=== PATIENT | male | born 1950 | race Two or more races ===

== ENCOUNTER 2023-06-24 15:57 | Emergency (ER) | payer OTHER, MEDICAID ==
[~2023-06-24] VITALS: Ht 190.5 cm; Wt 102.3 kg
[2023-06-24 16:57] LABS: Basophils # (auto) 0.1 10 ^3/uL (0-0.2); Basophils % (auto) 0.5 % (0.0-2.0); Eosinophils # (auto) 0 10 ^3/uL (0-0.8); Eosinophils % (auto) 0.2 % (0.0-7.0); Hematocrit 42.6 % (41.0-53.0); Hemoglobin 14.1 g/dL (13.5-17.5); Lymphocytes # (auto) 0.8 10 ^3/uL (0.4-5.4); Lymphocytes % (auto) 5.2 % (10.0-50.0); Mean Corpuscular Hemoglobin 27.5 pg (28.0-32.0); Mean Corpuscular Volume 83.2 fL (80.0-100.0); Monocytes # (auto) 0.7 10 ^3/uL (0-1.3); Monocytes % (auto) 4.5 % (0.0-12.0); Neutrophils # (auto) 13.7 10 ^3/uL (1.6-8.6); Neutrophils % (auto) 89.6 % (37.0-80.0); Red Blood Cells 5.12 10^6/uL (4.5-5.90); Red Cell Distribution Width 14.6 % (11.8-14.3); White Blood Cell 15.3 10^3/uL (4.4-10.8)
[2023-06-24 17:21] LABS: Acetaminophen < 2.0 UG/ML (10.0-20.0); Alanine Aminotransferase 19 U/L (7-40); Albumin 4.4 g/dL (3.2-4.8); Alkaline Phosphatase 46 U/L (46-116); Anion Gap 8 (5-15); Aspartate Aminotransferase 26 U/L (13-40); BUN/Creatinine Ratio 9.9 (10.0-20.0); Blood Urea Nitrogen 10 mg/dL (9-23); Calcium 9.6 mg/dL (8.7-10.4); Carbon Dioxide 23 mmol/L (20-30); Chloride 107 mmol/L (98-107); Glucose 119 mg/dL (74-106); Salicylate < 3.0 mg/dL (2.8-20.0); Sodium 138 mmol/L (136-145)
[2023-06-24 17:22] LABS: Bilirubin, Total 0.6 mg/dL (0.2-1.0)
[2023-06-24 19:30] VITALS: PULSE 91; RESP 20; O2SAT 97
[2023-06-24 20:54] LABS: Urine Amorphous Crystal FEW /hpf (None Seen); Urine Bacteria NONE SEEN /hpf (None Seen); Urine Blood Negative /uL (Negative); Urine Clarity Clear (Clear); Urine Color Yellow (Yellow); Urine Mucus FEW (None Seen); Urine Protein, UAD TRACE (Negative); Urine Specific Gravity 1.018 (1.001-1.035); Urine Urobilinogen Normal (Negative); Urine WBC 2 /hpf (0 - 3); Urine pH 6.5 (5.0-8.0)
[2023-06-24 20:58] LABS: Amphetamine Screen, Urine Neg (NEGATIVE); Barbiturate Scree,Urine Neg (NEGATIVE); Benzodiazephine Screen, Urine Neg (NEGATIVE); Cannabinoid Screen, Urine Pos (NEGATIVE); Cocaine Screen, Urine Neg (NEGATIVE); Opiate Scree,Urine Neg (NEGATIVE); Phencyclidine Screen, Urine Neg (NEGATIVE)
[2023-06-25 07:40] VITALS: PULSE 78; RESP 18; O2SAT 98
[2023-06-25] MEDS ORDERED: METO25TA5 PO (13:54)
[2023-06-25] MEDS ORDERED: METO10TA7 PO (13:54)
[2023-06-25] MEDS ORDERED: HYDR-3682 PO (13:54)
[2023-06-25] MEDS ORDERED: ENAL1TAB42 PO (13:54)
[2023-06-25] MEDS ORDERED: OME20GT GT (13:54)
[2023-06-25] MEDS ORDERED: DIPH25TA31 PO (13:54)
[2023-06-25] MEDS: METOPROLOL TARTRATE 25 MG TAB PO SCH ×2 (16:44→23:07)
[2023-06-25] MEDS: PANTOPRAZOLE 40 MG TAB PO SCH (16:44)
[2023-06-25] MEDS: ENALAPRIL MALEATE 2.5 MG TAB PO SCH (18:18)
[2023-06-25 19:30] VITALS: PULSE 86; RESP 15; O2SAT 96
[2023-06-26 07:35] VITALS: PULSE 91; RESP 11; O2SAT 95
[2023-06-26] MEDS ORDERED: PANTOPRAZOLE 40 MG TAB PO SCH (10:00)
[2023-06-26] MEDS: PANTOPRAZOLE 40 MG TAB PO SCH (10:19)
[2023-06-26] MEDS: METOPROLOL TARTRATE 25 MG TAB PO SCH (10:20)
[2023-06-26] MEDS: ENALAPRIL MALEATE 2.5 MG TAB PO SCH (10:20)
[2023-06-26] MEDS ORDERED: CITALOPRAM HYDROBR 20 MG TAB PO ONE (11:15)
[2023-06-26 15:23] VITALS: BP 114/63; PULSE 79; RESP 18; TEMP 98.7; O2SAT 95
== END 2023-06-26 15:30 | disposition short-term general hospital (02) ==
LOC: EDBD 15:57 → ER 15:57
DX: T54.92XA Toxic effect of unspecified corrosive substance, intentional self-harm, initial encounter (principal); I10 Essential (primary) hypertension; Y92.89 Other specified places as the place of occurrence of the external cause
CPT/HCPCS: 36415; 80053; 80307; 80320; 80329; 81001; 85025